=== PATIENT | female | born 1985 | race African-American/Black ===

== ENCOUNTER 2022-05-11 13:07 | Inpatient (IN) | payer OTHER ==
[2022-05-11 13:16] VITALS: BMI 42.5
[2022-05-11] MEDS ORDERED: SODIUM CHLORIDE 1,000 ML IV STA (14:14)
[2022-05-11] MEDS ORDERED: ACETAMINOPHEN 1000 MG/100 ML BAG IVPB ONE (14:14)
[2022-05-11] MEDS ORDERED: ACETAMINOPHEN INJECTION 100 ML IVPB ONE (14:22)
[2022-05-11 15:03] LABS: BASO % 0.5 % (0-2.0); EOS % 0.4 % (0-4.5); HEMATOCRIT 33.4 % (32.4-45.2); HEMOGLOBIN 11.2 GM/dL (10.7-15.3); LYMPH % 16.9 % (8-40); MCH 28.4 pg (25.7-33.7); MCHC 33.5 g/dl (32.0-36.0); MEAN CELL VOLUME 84.7 fl (80-96); MEAN PLT VOLUME 7.3 fl (7.5-11.1); NEUT % 75.2 % (42.8-82.8); PLATELET COUNT 314 10^3/uL (134-434); RBC 3.94 M/mm3 (3.60-5.2); RDW 14.9 % (11.6-15.6); WHITE BLOOD COUNT 8.3 K/mm3 (4.0-10.0)
[2022-05-11 15:23] LABS: BLOOD UREA NITROGEN 6.5 mg/dL (7-18); CALCIUM 8.3 mg/dL (8.5-10.1)
[2022-05-11 15:24] LABS: ALBUMIN 2.7 g/dl (3.4-5.0)
[2022-05-11 15:27] LABS: CREATININE 0.5 mg/dL (0.55-1.3); TOT PROT 6.6 g/dl (6.4-8.2)
[2022-05-11 15:28] LABS: BILIRUBIN,TOTAL 0.4 mg/dL (0.2-1)
[2022-05-11 17:10] VITALS: TEMP 98.7
[2022-05-11 17:41] LABS: COCAINE, UR NEGATIVE (NEGATIVE)
[2022-05-11 17:42] LABS: OPIATES, URI NEGATIVE (NEGATIVE); PHENCYCLIDINE,URINE NEGATIVE (NEGATIVE)
[2022-05-11 17:43] LABS: METHADONE, UR NEGATIVE (NEGATIVE); URINE AMPHETAMINES NEGATIVE (NEGATIVE); URINE BARBITURATES NEGATIVE (NEGATIVE); URINE BENZODIAZEPINES NEGATIVE (NEGATIVE)
[2022-05-11 17:44] LABS: PH,URINE 6.5 (5.0-8.0); URINE APPEARANCE TURBID; URINE BILIRUBIN NEGATIVE (NEGATIVE); URINE COLOR YELLOW; URINE GLUCOSE (UA) NEGATIVE (NEGATIVE); URINE KETONE 2+ (NEGATIVE); URINE LEUK ESTERASE 1+ (NEGATIVE); URINE NITRITE NEGATIVE (NEGATIVE); URINE PROTEIN NEGATIVE (NEGATIVE); URINE UROBILINOGEN 0.2 mg/dL (0.2-1.0)
[2022-05-11 18:16] VITALS: BP 132/61; PULSE 71; RESP 19
[2022-05-11] MEDS ORDERED: DEXTROSE 5%-LACTATED RINGERS 1,000 ML IV SCH (18:20)
[2022-05-11 20:28] LABS: HEPATITIS B SURFACE AG MATERN NON-REACTIVE (NONREACTIVE)
[2022-05-11 20:57] LABS: HIV INTERPRETATION NEGATIVE (NEGATIVE)
[2022-05-11 21:08] LABS: ACTIVATED PTT 29.6 SECONDS (25.2-36.5); INR 0.94 (0.83-1.09); PROTHROMBIN TIME (PATIENT) 10.9 SEC (9.7-13.0)
[2022-05-12 06:15] LABS: EPI CELLS 58.5 /uL (0-25.1); HYALINE CASTS 0.75 /uL (0-3.1); URINE BACTERIA 159.4 /uL (0-1359); URINE RBC 217.3 /uL (0-23.9)
== END 2022-05-11 20:05 | disposition home or self-care (01) | DRG 833 ==
LOC: JER 13:07 → JERBED 17:26 → JLDR 17:32
PROVIDERS: ADMIT Obstetrics & Gynecology; ATTEND Obstetrics & Gynecology
DX: O26.893 Other specified pregnancy related conditions, third trimester (principal); O99.213 Obesity complicating pregnancy, third trimester; R19.7 Diarrhea, unspecified; Z3A.37 37 weeks gestation of pregnancy; R10.9 Unspecified abdominal pain
CPT/HCPCS: 36415; 59025; 76801-TC; 80053; 80307; 81003; 83690; 84443; 84703; 85025; 85610; 85730; 86780; 86850; 86900; 86901; 87086; 87340; 87389; 99285-25; C9803-CS; U0003; U0005

== ENCOUNTER 2022-05-12 00:15 | Inpatient (IN) | payer OTHER ==
[2022-05-12] MEDS ORDERED: ELECTROLYTE-148 SOLN 1,000 ML IV SCH (01:00)
[2022-05-12] MEDS ORDERED: PROMETHAZINE HCL 25 MG/1 ML VIAL ONE (02:50)
[2022-05-12] MEDS ORDERED: BUTORPHANOL TARTRATE 2 MG/ML VIAL ONE (02:50)
[2022-05-12] MEDS ORDERED: BUTORPHANOL TARTRATE 1 MG/ML VIAL IVPB ONE (02:55)
[2022-05-12] MEDS ORDERED: PROMETHAZINE HCL 25 MG/1 ML VIAL IVPB ONE (02:55)
[2022-05-12] MEDS ORDERED: AMPICILLIN SODIUM 2 GM VIAL ONE (09:06)
[2022-05-12] MEDS ORDERED: AMPICILLIN - 2 GM in SODIUM CHLORIDE 100 ML IVPB ONE (09:07)
[2022-05-12] MEDS ORDERED: OXYTOCIN 30 UNITS in 0.9% NS 30 UNIT/500 ML INFUS.BAG IVPB ONE (09:33)
[2022-05-12] MEDS: OXYTOCIN 30 UNITS in 0.9% NS 30 UNIT/500 ML INFUS.BAG IVPB SCH (09:38)
[2022-05-12] MEDS ORDERED: SUCCINYLCHOLINE CHLORIDE 200 MG/10 ML SYRINGE ONE (09:55)
[2022-05-12] MEDS ORDERED: PROPOFOL 20 ML ONE (09:55)
[2022-05-12] MEDS ORDERED: morphine SULFATE (PF) 1 MG/2 ML SYRINGE ONE (09:55)
[2022-05-12] MEDS ORDERED: FENTANYL CITRATE/PF 50 MCG/ML VIAL ONE (09:55)
[2022-05-12] MEDS ORDERED: OXYTOCIN 20 UNITS in 0.9% NS 20 UNIT/1,000 ML INFUS.BAG IV ONE ×2 (10:00→12:53)
[2022-05-12] MEDS ORDERED: KETOROLAC TROMETHAMINE 30 MG/1 ML VIAL ONE (10:01)
[2022-05-12] MEDS ORDERED: PHENYLEPHRINE HCL 10 MG/1 ML SINGLE DOSE VIAL ONE (10:01)
[2022-05-12] MEDS ORDERED: DEXAMETHASONE SOD PHOSPHATE 4 MG/1 ML VIAL ONE (10:01)
[2022-05-12] MEDS ORDERED: ONDANSETRON 4 MG/2 ML VIAL ONE (10:01)
[2022-05-12] MEDS ORDERED: ePHEDrine SULFATE 50 MG/1 ML AMPULE ONE (10:02)
[2022-05-12] MEDS ORDERED: morphine SULFATE/PF 1 MG/2 ML (2cc Syringe - QUVA) IT ONE (10:31)
[2022-05-12] MEDS ORDERED: ONDANSETRON 4 MG/2 ML VIAL IVPUSH PRN (10:31)
[2022-05-12 12:12] VITALS: BMI 42.5
[2022-05-12] MEDS: ACETAMINOPHEN 1000 MG/100 ML BAG IVPB SCH ×2 (12:50→20:05)
[2022-05-12] MEDS ORDERED: ACETAMINOPHEN INJECTION 100 ML IVPB ONE (12:53)
[2022-05-12] MEDS: ELECTROLYTE-148 SOLN 1,000 ML IV SCH (13:06)
[2022-05-12] MEDS ORDERED: AMPICILLIN - 1 GM in SODIUM CHLORIDE 100 ML IVPB SCH (13:15)
[2022-05-12] MEDS: OXYTOCIN 20 UNITS in 0.9% NS 20 UNIT/1,000 ML INFUS.BAG IV SCH (14:00)
[2022-05-12] MEDS ORDERED: IBUPROFEN 800 MG/8 ML IJ IVPB PRN (17:35)
[2022-05-12] MEDS ORDERED: ACETAMINOPHEN 325 MG TABLET (FP) PO PRN (17:35)
[2022-05-12] MEDS ORDERED: METHYLERGONOVINE MALEATE 0.2 MG/1 ML AMP IM PRN (17:35)
[2022-05-13] MEDS: SIMETHICONE 80 MG TAB.CHEW (FP) PO PRN ×4 (06:05→21:57)
[2022-05-13 08:10] LABS: BASO % 0.2 % (0-2.0); EOS % 0.9 % (0-4.5); HEMATOCRIT 27.9 % (32.4-45.2); HEMOGLOBIN 9.2 GM/dL (10.7-15.3); LYMPH % 25.6 % (8-40); MEAN CELL VOLUME 84.8 fl (80-96); MEAN PLT VOLUME 7.1 fl (7.5-11.1); MONO % 7.8 % (3.8-10.2); NEUT % 65.5 % (42.8-82.8); PLATELET COUNT 249 10^3/uL (134-434); RBC 3.29 M/mm3 (3.60-5.2); RDW 15.1 % (11.6-15.6); WHITE BLOOD COUNT 7.2 K/mm3 (4.0-10.0)
[2022-05-13] MEDS: IBUPROFEN 600 MG TABLET (FP) PO PRN ×2 (14:35→18:27)
[2022-05-13] MEDS ORDERED: BISACODYL 10 MG SUPP.RECT RC PRN (17:35)
[2022-05-13] MEDS: oxyCODONE HCL 5 MG TABLET PO PRN (21:57)
[2022-05-14] MEDS: oxyCODONE HCL 5 MG TABLET PO PRN ×2 (03:21→21:02)
[2022-05-14] MEDS: SIMETHICONE 80 MG TAB.CHEW (FP) PO PRN ×3 (03:21→21:02)
[2022-05-14] MEDS: OXYTOCIN 30 UNITS in 0.9% NS 30 UNIT/500 ML INFUS.BAG IVPB SCH (03:24)
[2022-05-14] MEDS: ELECTROLYTE-148 SOLN 1,000 ML IV SCH (03:24)
[2022-05-14] MEDS: OXYTOCIN 20 UNITS in 0.9% NS 20 UNIT/1,000 ML INFUS.BAG IV SCH (03:25)
[2022-05-14] MEDS: IBUPROFEN 600 MG TABLET (FP) PO PRN ×2 (09:22→15:35)
[2022-05-14 21:23] VITALS: RESP 18
[2022-05-15] MEDS: SIMETHICONE 80 MG TAB.CHEW (FP) PO PRN (05:47)
[2022-05-15] MEDS: oxyCODONE HCL 5 MG TABLET PO PRN (05:47)
[2022-05-15 07:26] LABS: BASO % 0.3 % (0-2.0); HEMATOCRIT 29.5 % (32.4-45.2); HEMOGLOBIN 10.1 GM/dL (10.7-15.3); LYMPH % 37.6 % (8-40); MCH 28.8 pg (25.7-33.7); MCHC 34.1 g/dl (32.0-36.0); MEAN CELL VOLUME 84.3 fl (80-96); MEAN PLT VOLUME 6.7 fl (7.5-11.1); MONO % 6.8 % (3.8-10.2); NEUT % 52.3 % (42.8-82.8); PLATELET COUNT 314 10^3/uL (134-434); RDW 14.9 % (11.6-15.6); WHITE BLOOD COUNT 4.9 K/mm3 (4.0-10.0)
[2022-05-15] MEDS: IBUPROFEN 600 MG TABLET (FP) PO PRN (09:59)
[2022-05-15 10:22] VITALS: BP 123/81; PULSE 94; TEMP 98.3
[2022-05-15 14:16] LABS: POC NITRAZINE POS
== END 2022-05-15 12:25 | disposition home or self-care (01) | DRG 785 ==
LOC: JDEL 00:15 → JLDR 09:00 → J3W 14:11
PROVIDERS: ADMIT Obstetrics & Gynecology; ATTEND Obstetrics & Gynecology
PROC: 0UL70ZZ Occlusion of Bilateral Fallopian Tubes, Open Approach (ICD-10-PCS; principal; 2022-05-12)
PROC: 10D00Z1 Extraction of Products of Conception, Low, Open Approach (ICD-10-PCS; 2022-05-12)
DX: O76 Abnormality in fetal heart rate and rhythm complicating labor and delivery (principal); O69.81X0 Labor and delivery complicated by cord around neck, without compression, not applicable or unspecified; O34.13 Maternal care for benign tumor of corpus uteri, third trimester; D25.2 Subserosal leiomyoma of uterus; Z30.2 Encounter for sterilization; Z3A.37 37 weeks gestation of pregnancy; Z37.0 Single live birth
CPT/HCPCS: 36415; 59025; 83986-QW; 85025; 88302-TC; 88307-TC; 94010